=== PATIENT | male | born 1970 | race Caucasian/White ===

== ENCOUNTER 2021-03-26 13:28 | Emergency (ER) | payer BC ==
[~2021-03-26] VITALS: Ht 167.6 cm; Wt 95.3 kg
== END 2021-03-26 16:55 | disposition home or self-care (01) ==
LOC: ER1 13:28
DX: U07.1 COVID-19 (principal); Z23 Encounter for immunization; F17.200 Nicotine dependence, unspecified, uncomplicated
CPT/HCPCS: 99283; M0245